=== PATIENT | male | born 1985 | race Caucasian/White ===

== ENCOUNTER 2017-10-19 11:07 | Emergency (ER) | payer OTHER ==
[~2017-10-19] VITALS: Ht 182.9 cm; Wt 88.5 kg
[~2017-10-19 11:07] MED LIST: CARAFATE1 GM/10 ML PO; NEXIUM 40MG40 MG PO
[2017-10-19 12:16] LABS: ABSOLUTE BASOPHIL COUNT 0 /CUMM (0.0-0.2); ABSOLUTE EOSINOPHIL COUNT 0.1 /CUMM (0.0-0.7); ABSOLUTE GRANULOCYTE CT 1.9 /CUMM (1.4-6.5); ABSOLUTE LYMPH COUNT 1.6 /CUMM (1.2-3.4); ABSOLUTE MONOCYTE COUNT 0.4 /CUMM (0.10-0.60); BASOPHIL % 0.5 % (0.0-2.0); EOSINOPHIL % 2.6 % (0-5); GRANULOCYTE % 47.2 % (42.2-75.2); HEMATOCRIT 44.4 % (42-52); MEAN CORPUSCULAR HGB 32.2 PG (27.0-31.0); MEAN CORPUSCULAR HGB CONC 33.7 G/DL (33.0-37.0); MEAN CORPUSCULAR VOLUME 95.7 FL (80.0-94.0); MEAN PLATELET VOLUME 8.8 FL (7.4-10.4); PLATELET COUNT 198 /CUMM (130-400); RBC DISTRIBUTION WIDTH 13.1 % (11.5-14.5); RED BLOOD CELL CT 4.64 /CUMM (4.70-6.10)
--- NOTE | 2017-10-19 12:35 | ED GI/GU/ABDOMINAL COMPLAINT ---
History of Present Illness General Chief Complaint: General Adult Stated Complaint: ABD PAIN/BACK PAIN, RIGHT SIDED GROIN PAIN Source: patient Exam Limitations: no limitations Vital Signs & Intake/Output Vital Signs & Intake/Output Vital Signs Date Time Temp Pulse Resp B/P B/P Pulse O2 O2 Flow FiO2 Mean Ox Delivery Rate 10/19 1516 98.2 79 18 143/83 98 Room Air 10/19 1411 98.2 69 18 132/75 98 Room Air 10/19 1305 Room Air 10/19 1112 96.0 80 18 138/84 99 Room Air Allergies Coded Allergies: NO KNOWN ALLERGIES (09/17/12) Reconcile Medications Levofloxacin (Levaquin) 500 MG TABLET 1 TAB PO DAILY PROSTATITS Naproxen (Naprosyn) 500 MG TABLET 1 TAB PO BID PRN PAIN Triage Note: PT TO ER C/C RIGHT FLANK/GROIN PAIN X 3 DAYS. DENIES HEMATURIA, DYSURIA. SEEN AT WALK IN FOR SAME ON WEDNESDAY. HAD BENIGN LABS AND NORMAL STD SCREENING. Triage Nurses Notes Reviewed? yes Onset: Gradual Duration: day(s): (3) Timing: no prior history Quality/Severity: moderate Severity Numbers: 6 Location: right flank, scrotal Radiation: groin Activities at Onset: none Prior Abdominal Problems: none Sexually Active: Yes Last Time You Were Sexual: less than 2 months ago Sexual Orientation: Heterosexual Use of Protection: No Modifying Factors: Worsens With: movement, palpation. HPI: Patient is a 32-year-old male presenting to the emergency department with chief complaint of right groin pain, right flank pain has been going on constantly for the past 3 days. Symptoms are worse with lying down, better with ambulating. Denies any fevers or chills. No back pain. No nausea or vomiting. Denies decreased by mouth intake. Has been taking [id number] Tylenol and Motrin without relief. Denies any penile discharge. No urinary frequency urgency or dysuria. No history of hernias. Patient is referred to a been doing a lot of heavy lifting with shoveling but no specific onset of pain, pain has been progressive. Denies any chance of STD, sexually active with one person, his . No change in bowel or bladder habits. Patient does report right testicular pain and feels swollen at times. Denies trauma. (Oumar MCCORD,Kia) Past History Travel History Traveled to [place] past 21 day No Medical History Any Pertinent Medical History? see below for history Surgical History Surgical History: non-contributory Psychosocial History Who do you live with Spouse What is your primary language Ukrainian Tobacco Use: Never used Family History Hx Contributory? No (Kia Porter) Review of Systems Review of Systems Constitutional: Reports: no symptoms. Comments Review of systems: See HPI, All other systems negative. Constitutional, no chills fever or weight loss HEENT: No visual changes no sore throat no congestion Cardiovascular: No chest pain ,palpitation Skin, no jaundice no rashes Respiratory: No dyspnea cough sputum or hemoptysis GI: No nausea no vomiting : No dysuria No hematuria Muscle skeletal: no back pain, no neck pain, Neurologic: No numbness no confusion NO HEADACHES Psych: No stress Heme/endocrine: No bruising no bleedinG Immunology: No splenectomy or history of AIDS (Kia Porter) Physical Exam Physical Exam General Appearance: well developed/nourished, no apparent distress, alert, awake , comfortable Gastrointestinal: normal bowel sounds, soft, tenderness Comments: Well-developed well-nourished person in no acute distress HEENT: Atraumatic, normocephalic Neck: Normal inspection Back: Nontender, no CVA tenderness. Cardiovascular: Regular rate and rhythms no murmurs rubs or gallops Respiratory: Chest nontender. No respiratory distress.breath sounds clear to auscultation bilaterally Abdomen: Soft, moderately tender palpation in the right lower quadrant, no rebound or guarding, nondistended, no appreciable organomegaly. Normal bowel sounds. No ascites : Tender to palpation of the right testicle, moderately edematous compared to the left testicle, no palpable masses. No pain to palpation of the left testicle. No discharge noted at the glans penis. No pain to palpation over the penile shaft. No lesions or rashes noted. No palpable hernias on exam. Extremity: No edema Neuro: Alert oriented x3 Skin: No appreciable rash on exposed skin, skin is warm and dry. Psych: Mood and affect is normal, memory and judgment is normal. Core Measures ACS in differential dx? No Sepsis Present: No Sepsis Focused Exam Completed? No (Kia Porter) Progress Differential Diagnosis: URINARY TRACT INFECTION, BILATERAL, APPENDICITIS, TESTICULAR TORSION, ORCHITIS, EPIDIDYMITIS, PROSTATITIS Plan of Care: Orders Procedure Date/time Status Add-on Test (ER Only) 10/19 1415 Active Add-on Test (ER Only) 10/19 1414 Active CULTURE,URINE 10/19 1125 Active CHLAMYDIA-GC DNA PROBE 10/19 1117 Active URINALYSIS 10/19 1117 Complete C-REACTIVE PROTEIN 10/19 1117 Complete COMPREHENSIVE METABOLIC PANEL 10/19 1117 Complete CBC WITHOUT DIFFERENTIAL 10/19 1117 Complete Laboratory Tests 10/19/17 1126: Urine Color YEL, Urine Clarity HAZY H, Urine pH 6.0, Ur Specific [place] 1.025, Urine Protein TRACE H, Urine Ketones TRACE H, Urine Nitrite NEG, Urine Bilirubin NEG, Urine Urobilinogen 0.2, Ur Leukocyte Esterase NEG, Ur Microscopic SEDIMENT EXAMINED, Urine WBC 1-3 H, Ur Epithelial Cells FEW, Urine Bacteria FEW H, Urine Mucus MOD H, Urine Hemoglobin NEG, Urine Glucose NEG 10/19/17 1110: Anion Gap 13, Estimated GFR > 60, BUN/Creatinine Ratio 15.6, Glucose 95, Calcium 9.5, Total Bilirubin 0.6, AST 21, ALT 43, Alkaline Phosphatase 39, C-Reactive Prot, Quant < 0.5, Total Protein 7.2, Albumin 4.7, Globulin 2.5, Albumin/ Globulin Ratio 1.9, CBC w Diff NO MAN DIFF REQ, RBC 4.64 L, MCV 95.7 H, MCH 32.2 H, RDW 13.1, MPV 8.8, Gran % 47.2, Lymphocytes % 40.2, Monocytes % 9.5 H, Eosinophils % 2.6, Basophils % 0.5, Absolute Granulocytes 1.9, Absolute Lymphocytes 1.6, Absolute Monocytes 0.4, Absolute Eosinophils 0.1, Absolute Basophils 0, PUBS MCHC 33.7 Microbiology 10/19 1125 URINE ROUT: Urine Culture - RECD 10/19 1117 URINE ROUT: GC DNA Probe - RECD 10/19 1117 URINE ROUT: Chlamydia DNA Probe (PATI) - RECD Diagnostic Imaging: Viewed by Me: CT Scan. Discussed w/RAD: CT Scan. Radiology Impression: PATIENT: PATTI FINK PRESENT AGE: 32 PATIENT ACCOUNT NO: [id number] : 83 LOCATION: [facility] ORDERING PHYSICIAN: Kia MCCORD SERVICE DATE: 10/19/17 EXAM TYPE: CAT - CT ABD & PELVIS W IV CONTRAST EXAMINATION: CT ABDOMEN AND PELVIS WITH CONTRAST CLINICAL INFORMATION: 32-year-old male with right lower quadrant pain. COMPARISON: CT abdomen pelvis 04/28/2013 and 09/17/2012 TECHNIQUE: Multidetector volumetric imaging was performed of the abdomen and pelvis following IV administration of 95 mL of Optiray 320 intravenous contrast. Sagittal and coronal reformatted images were obtained on the technologist's workstation. DLP: 316.45 mGy-cm FINDINGS: LUNG BASES: Stable 3 mm subpleural nodule within the right middle lobe (image 25, series 3) and 4 mm nodule within the left lower lobe (image 73, series 3) dating back to 2011. LIVER, GALLBLADDER, AND BILIARY TREE: The liver is normal in size, shape, and attenuation. No focal hepatic lesion or biliary ductal dilatation is present. The gallbladder is unremarkable with no evidence of radiopaque gallstones, gallbladder wall thickening, or obvious pericholecystic inflammatory changes. PANCREAS: Unremarkable. SPLEEN: Unremarkable. ADRENAL GLANDS: Unremarkable. KIDNEYS AND URETERS: The kidneys are normal in size, shape, and attenuation. No hydronephrosis, hydroureter, or calculi seen. Similar 1.4 cm right renal hypoattenuating lesion likely representing a cyst, appears a measuring 1.1 cm in 2012. Additional subcentimeter renal hypodensities are too small to characterize. No perinephric stranding. BLADDER: Unremarkable. GASTROINTESTINAL TRACT: There is no bowel obstruction, free intraperitoneal air or fluid. The appendix is within normal limits. ABDOMINAL WALL: No significant hernia is appreciated. LYMPH NODES: No mesenteric, retroperitoneal or pelvic lymphadenopathy. VASCULAR: Nonaneurysmal abdominal aorta. Patent portal and renal veins. PELVIC VISCERA: Coarse calcifications are noted within the central prostate gland. Seminal vesicles are grossly unremarkable. No pelvic free fluid. OSSEOUS STRUCTURES: No acute or suspicious osseous lesions. IMPRESSION: 1. No acute intra-abdominal or pelvic abnormality. Appendix is within normal limits. No hernia identified. 2. Stable sub-5 mm pulmonary nodules. 3. Small right renal cyst. DICTATED BY: Forrest Bardales DO DATE/TIME DICTATED:10/19/171337 IMMIGRATION LAW SPECIALIST:MYRA DATE/ TIME TRANSCRIBED:10/19/171337 CONFIDENTIAL, DO NOT COPY WITHOUT APPROPRIATE AUTHORIZATION. <Electronically signed in Other Vendor System> , PATIENT: PATTI FINK PRESENT AGE: 32 PATIENT ACCOUNT NO: [id number] : 83 LOCATION: [facility] ORDERING PHYSICIAN: Kia MCCORD SERVICE DATE: 10/19/178188 EXAM TYPE: US - US- TESTICULAR EXAMINATION: US SCROTUM CLINICAL INFORMATION: Rule out torsion. Right testicular pain COMPARISON: None TECHNIQUE: A sonogram of the scrotum was performed assessing tracey-scale appearance and color Doppler flow. Spectral analysis and Doppler interrogation was performed. FINDINGS: RIGHT: Right testicle measures 4.7 x 2.4 x 3.5 cm, volume 28 mL. Parenchymal echotexture is normal. No focal testicular parenchymal lesions are visualized. Normal symmetric intratesticular flow is visualized. Right epididymal head is normal in size. No right hydrocele or varicocele is seen. LEFT: Left testicle measures 2.6 x 1.6 x 3.5 cm, volume 10.3 mL. Parenchymal echotexture is normal. No focal testicular parenchymal lesions are visualized. Normal symmetric intratesticular flow is visualized. Left epididymal head is normal in size. Multiple tubular structures are seen adjacent the left epididymal head and tail. These do not demonstrate flow on color Doppler imaging. IMPRESSION: Normal arterial and venous spectral Doppler waveforms are identified within the right testicle, strong evidence against active torsion at the time of the scan. The right testicle is asymmetrically enlarged compared to the left, volume 28 vs. 10 cc. Recommend correlation with physical exam and any history of prior left testicular trauma, cryptorchidism, surgery, etc. Multiple hypoechoic tubular structures are seen adjacent the left epididymal head and tail. There is no demonstrable flow, favoring these represent spermatoceles rather than prominent veins (the diameter does not meet criteria for a varicocele). DICTATED BY: Joo Arteaga MD DATE/ TIME DICTATED:10/19/171417 IMMIGRATION LAW SPECIALIST:MYRA DATE/TIME TRANSCRIBED: 10/19/171417 CONFIDENTIAL, DO NOT COPY WITHOUT APPROPRIATE AUTHORIZATION. Initial ED EKG: none Comments: 10/19/2017 3:16:26 PM patient declines prophylactic treatment for STD . He reports that he is only sexually active with . Concern for STD. Patient will continue taking Levaquin. He'll follow-up with urology. Patient nontoxic. No signs of torsion noted on ultrasound. No signs of appendicitis on CAT scan. (Kia Porter) Departure Departure Time of Disposition: 1514 Disposition: HOME OR SELF CARE Condition: Stable Clinical Impression Primary Impression: Stones, prostate Secondary Impressions: Groin pain Qualifiers: Laterality: right Qualified Code: R10.31 - Right lower quadrant pain Orchitis Referrals: Sarbjit PETERSON,Kevin Arias MD,Maribeth Oates (PCP/Family) Additional Instructions: Follow-up with urology, call tomorrow to make an appointment for the next 5-7 days. Take anti-inflammatory as prescribed up with pain. Take antibiotics to help with urine infection. Increase fluids. Return for worsening symptoms or concerns. Departure Forms: Customer Survey General Discharge Information Prescriptions: Current Visit Scripts Levofloxacin (Levaquin) 1 TAB PO DAILY #7 TAB Naproxen (Naprosyn) 1 TAB PO BID PRN PAIN #20 TAB (Kia Porter) PA/BINMAN Co-Sign Statement Statement: ED Attending supervision documentation- [] I saw and evaluated the patient. I have also reviewed all the pertinent lab results and diagnostic results. I agree with the findings and the plan of care as documented in the PA's/BINMAN's documentation. [X] I have reviewed the ED Record and agree with the PA's/BINMAN's documentation. [] Additions or exceptions (if any) to the PAs/BINMAN's note and plan are summarized below: [] (Lauri PETERSON,Esperanza)
--- NOTE | 2017-10-19 14:00 | CT SCAN REPORT ---
EXAMINATION: CT ABDOMEN AND PELVIS WITH CONTRAST CLINICAL INFORMATION: 32-year-old male with right lower quadrant pain. COMPARISON: CT abdomen pelvis 04/28/2013 and 09/17/2012 TECHNIQUE: Multidetector volumetric imaging was performed of the abdomen and pelvis following IV administration of 95 mL of Optiray 320 intravenous contrast. Sagittal and coronal reformatted images were obtained on the technologist's workstation. DLP: 316.45 mGy-cm FINDINGS: LUNG BASES: Stable 3 mm subpleural nodule within the right middle lobe (image 25, series 3) and 4 mm nodule within the left lower lobe (image 73, series 3) dating back to 2011. LIVER, GALLBLADDER, AND BILIARY TREE: The liver is normal in size, shape, and attenuation. No focal hepatic lesion or biliary ductal dilatation is present. The gallbladder is unremarkable with no evidence of radiopaque gallstones, gallbladder wall thickening, or obvious pericholecystic inflammatory changes. PANCREAS: Unremarkable. SPLEEN: Unremarkable. ADRENAL GLANDS: Unremarkable. KIDNEYS AND URETERS: The kidneys are normal in size, shape, and attenuation. No hydronephrosis, hydroureter, or calculi seen. Similar 1.4 cm right renal hypoattenuating lesion likely representing a cyst, appears a measuring 1.1 cm in 2013. Additional subcentimeter renal hypodensities are too small to characterize. No perinephric stranding. BLADDER: Unremarkable. GASTROINTESTINAL TRACT: There is no bowel obstruction, free intraperitoneal air or fluid. The appendix is within normal limits. ABDOMINAL WALL: No significant hernia is appreciated. LYMPH NODES: No mesenteric, retroperitoneal or pelvic lymphadenopathy. VASCULAR: Nonaneurysmal abdominal aorta. Patent portal and renal veins. PELVIC VISCERA: Coarse calcifications are noted within the central prostate gland. Seminal vesicles are grossly unremarkable. No pelvic free fluid. OSSEOUS STRUCTURES: No acute or suspicious osseous lesions. IMPRESSION: 1. No acute intra-abdominal or pelvic abnormality. Appendix is within normal limits. No hernia identified. 2. Stable sub-5 mm pulmonary nodules. 3. Small right renal cyst.
[2017-10-19] MEDS ORDERED: LEVAQUIN500 M1 PO (14:20)
[2017-10-19] MEDS ORDERED: NAPROSYN500 M1 PO (14:20)
--- NOTE | 2017-10-19 14:55 | ULTRASOUND REPORT ---
EXAMINATION: US SCROTUM CLINICAL INFORMATION: Rule out torsion. Right testicular pain COMPARISON: None TECHNIQUE: A sonogram of the scrotum was performed assessing tracey-scale appearance and color Doppler flow. Spectral analysis and Doppler interrogation was performed. FINDINGS: RIGHT: Right testicle measures 4.7 x 2.4 x 3.5 cm, volume 28 mL. Parenchymal echotexture is normal. No focal testicular parenchymal lesions are visualized. Normal symmetric intratesticular flow is visualized. Right epididymal head is normal in size. No right hydrocele or varicocele is seen. LEFT: Left testicle measures 2.6 x 1.6 x 3.5 cm, volume 10.3 mL. Parenchymal echotexture is normal. No focal testicular parenchymal lesions are visualized. Normal symmetric intratesticular flow is visualized. Left epididymal head is normal in size. Multiple tubular structures are seen adjacent the left epididymal head and tail. These do not demonstrate flow on color Doppler imaging. IMPRESSION: Normal arterial and venous spectral Doppler waveforms are identified within the right testicle, strong evidence against active torsion at the time of the scan. The right testicle is asymmetrically enlarged compared to the left, volume 28 vs. 10 cc. Recommend correlation with physical exam and any history of prior left testicular trauma, cryptorchidism, surgery, etc. Multiple hypoechoic tubular structures are seen adjacent the left epididymal head and tail. There is no demonstrable flow, favoring these represent spermatoceles rather than prominent veins (the diameter does not meet criteria for a varicocele).
[2017-10-19 15:16] VITALS: BP 143/83
== END 2017-10-19 15:23 ==
LOC: ERH 11:07
PROVIDERS: Emergency Medicine
DX: N42.0 Calculus of prostate (principal); N45.2 Orchitis
CPT/HCPCS: 74177; 81001; 87086; 87491; 87591; 96374; J1885